=== PATIENT | female | born 1960 | race Caucasian/White ===

== ENCOUNTER 2017-02-12 18:38 | Emergency (ER) | payer OTHER ==
[2017-02-12] MEDS ORDERED: DIPHTH,PERTUSS(ACELL),TET VAC 0.5 ML VIAL IM ONE ×2 (19:23→19:24)
--- NOTE | 2017-02-12 19:31 | ERNOTE ---
Upper Extremity HPI - Narrative Date of Service: 02/12/17 - General Extremities Pain Location: wrist: left Time Seen by Provider: 02/12/17 18:57 Source: patient Exam Limitations: no limitations - Immun/Allergies/Home Medications Immunizations: IMMUNIZATION HX Immunizations Up to Date No History of Influenza Vaccine No Allergies/Adverse Reactions: Allergies Allergy/AdvReac Type Severity Reaction Status Date / Time No Known Allergies Allergy Verified 02/12/17 18:45 Home Medications: HOME MEDICATIONS Ibuprofen [Motrin] 200 - 800 mg PO Q6H PRN 04/12/14 [Last Taken Unknown] metFORMIN HCL [Glucophage] 850 mg PO BID 05/10/14 [Last Taken 05/09/14 850] glipiZIDE [Glipizide] 5 mg PO BID 02/12/17 [Last Taken Unknown] - History of Present Illness Narrative: Pt. comes in with c/o laceration to L inner wrist after she was attempting to open a package with a brand new knife. Pt. denies any numbness, tingling, SOB, CP, NVD, fever or recent illness. Pt. denies any severe bleeding after she applied pressure. Pt. states taht she has not has a tetanus vaccine in over 40 years. Review of Systems - Review of Systems Constitutional: Present: no symptoms reported. Absent: recent illness, fever, chills, weakness, fatigue, malaise EYE: Present: no symptoms reported ENT: Present: no symptoms reported Respiratory: Present: no symptoms reported. Absent: shortness of breath, cough , wheezing Cardiology: Present: no symptoms reported. Absent: chest pain, palpitations, edema Gastrointestinal/Abdominal: Present: no symptoms reported. Absent: nausea, vomiting, diarrhea Genitourinary: Present: no symptoms reported Musculoskeletal: Present: no symptoms reported. Absent: back pain, joint pain Skin: Present: other - laceration L inner forearm Neurological: Present: no symptoms reported. Absent: headache, dizziness/light- headedness, numbness, tingling All Other Systems: All systems neg except as marked - Patient's Past Medical History Patient History - Medical: Diabetes Type 2 Patient History - Cardiac/Respiratory: No pertinent hx Patient History - Cancer: No Hx of Cancer Patient History - Surgical Procedures: Tubal Ligation - Social History Living Situations: home Smoking Status: Current every day smoker Alcohol Use: none Drug Use: none - Immunizations Immunizations Up to Date: No History of Influenza Vaccine: No Physical Exam - Physical Exam General Appearance: Present: wd/wn, alert, no apparent distress Head Exam: Present: normal inspection, no evidence of injury Eye Exam: Normal inspection: bilateral Respiratory: Present: no respiratory distress, normal breath sounds, no accessory muscle use, chest nontender, lungs clear Cardiovascular/Chest: Present: regular rate, rhythm, no murmur, normal peripheral pulses Extremity Exam: Present: other - 4cm laceration L inner arm open into subcutaneous tissue Neurological Exam: Present: alert, oriented, normal mood/affect, no motor/ sensory deficits Skin Exam: Present: normal color, warm/dry, other - see above. Absent: pallor, skin rash ED Progress - Vital Signs Patient's Vital Signs:: I have reviewed the patient's vital signs. Vital Signs: Vital Signs 02/12/17 18:41 Temperature 36.8 C Pulse Rate 79 Respiratory 18 Rate Blood Pressure 181/106 O2 Sat by Pulse 99 Oximetry - Progress/Reassessment Chief Complaint: Upper Extremity Injury/Problem Procedures Left Distal Volar Wrist Anesthesia: 1% Lidocaine I & D Prep: betadine prep, sterile drapes applied, sterile dressing applied Length of Repair/Wound (cm): 4 Wound's Depth/Shape: into subcutaneous, linear Wound Explored: clean Wound Intervention: irrigated w/saline Distal NVT: neuro/vasc intact, no tendon injury Wound Repaired With: sutures Suture Size/Type: 5-0, nylon Number of Sutures: 7 Layer Closure: Simple Wound Dressing: sterile dressing applied Complications: Pt nelida procedure well Departure Clinical Impression: Laceration - Departure Disposition: Home self-care Condition: Good Instructions: Laceration Care, Adult, [id number] Additional Instructions: Please follow up in 7-10 days for suture removal and change dressing twice a day with neosporin. Referrals: Vira Wallace MD [Primary Care Provider] -
[2017-02-12 19:34] VITALS: BP 151/61
== END 2017-02-12 19:37 | disposition home or self-care (01) ==
LOC: ER 18:38
PROC: 0JQH0ZZ Repair Left Lower Arm Subcutaneous Tissue and Fascia, Open Approach (ICD-10-PCS; principal; 2017-02-12)
DX: S61.512A Laceration without foreign body of left wrist, initial encounter (principal); E11.9 Type 2 diabetes mellitus without complications; W26.0XXA Contact with knife, initial encounter; F17.200 Nicotine dependence, unspecified, uncomplicated; Z23 Encounter for immunization